=== PATIENT | male | born 1935 | race Caucasian/White ===

== ENCOUNTER 2018-06-02 18:22 | Emergency (ER) | payer MEDICARE, OTHER ==
[~2018-06-02] VITALS: Ht 180.3 cm; Wt 67.1 kg
[~2018-06-02 18:22] MED LIST: ASPIR 8181 MG PO; COMBIVENT14.7 GM INH; Z.0.AMBIEN5 MG PO; Z.0.COLACE100 MG PO; Z.0.GABAPENTIN300 MG PO; Z.0.LEVOTHYROXINE75 PO; Z.0.LISINOPRIL5 MG PO; Z.0.ZITHROMAX250 MG PO; Z.1.FERROUS SULFAT32 PO
[2018-06-02 20:13] LABS: BASOPHILS % 0.4 % (0.0-1.0); EOSINOPHILS # (AUTO) 0.4 (0.0-0.4); EOSINOPHILS % 5.9 % (0.0-6.0); HEMATOCRIT 50.5 % (38.2-49.6); HEMOGLOBIN 16.4 g/dL (14.0-18.0); LYMPHOCYTES # (AUTO) 2.8 (1.0-3.2); LYMPHOCYTES % 39.1 % (18.0-39.1); MEAN CORPUSCULAR HEMOGLOBIN 33.6 pg (28-32); MEAN CORPUSCULAR HGB CONC 32.5 g/dL (31-35); MEAN CORPUSCULAR VOLUME 103.5 fL (81-99); MONOCYTES # (AUTO) 0.5 (0.2-0.8); MONOCYTES % 7.4 % (4.4-11.3); NEUTROPHILS # (AUTO) 3.4 (2.1-6.9); NEUTROPHILS % 47.1 % (38.7-80.0); PLATELET COUNT 146 x10e3/uL (140-360); RED BLOOD COUNT 4.88 x10e6/uL (4.3-5.7); RED CELL DISTRIBUTION WIDTH 12.1 % (11.7-14.4)
[2018-06-02 20:17] LABS: PARTIAL THROMBOPLASTIN TIME 29.9 seconds (23.8-35.5); PROTHROMBIN TIME 13.7 seconds (11.9-14.5)
[2018-06-02 20:27] LABS: ALBUMIN 4.1 g/dL (3.5-5.0); ALBUMIN/GLOBULIN RATIO 1.3 (0.8-2.0); ANION GAP 11.5 mmol/L (8-16); CALCIUM 9.7 mg/dL (8.4-10.2); CREATININE, SERUM 1.27 mg/dL (0.72-1.25); POTASSIUM 4.5 mmol/L (3.5-5.1)
[2018-06-02 20:34] LABS: CREATINE KINASE MB 3.1 ng/mL (0-5.0)
[2018-06-02] MEDS ORDERED: SODIUM CHLORIDE 0.9% 250ML 500 ML ONE (22:01)
[2018-06-02 22:25] LABS: BACTERIA,URINE FEW /HPF; BILIRUBIN,URINE NEGATIVE (NEGATIVE); CLARITY,URINE CLEAR (CLEAR); COLOR,URINE YELLOW (YELLOW); EPITHELIAL CELLS,URINE FEW /LPF; KETONES,URINE NEGATIVE (NEGATIVE); LEUKOCYTE ESTERASE ,URINE NEGATIVE (NEGATIVE); NITRITE,URINE NEGATIVE (NEGATIVE); PROTEIN,URINE DIPSTICK NEGATIVE (NEGATIVE); URINE UROBILINOGEN 0.2 mg/dL (0.2 - 1)
[2018-06-02] MEDS ORDERED: SODIUM CHLORIDE 0.9% 500ML 500 ML IV ONE (22:30)
[2018-06-02] MEDS ORDERED: SODIUM CHLORIDE 0.9% 100 ML 100 ML ONE (22:49)
[2018-06-02] MEDS ORDERED: IOPAMIDOL 370 MG/ML 200 ML INFUS..BTL INJ ONE (22:50)
--- NOTE | 2018-06-02 23:27 | NUR ---
250CC NS BOLUS STARTED AFTER CT. AWAKE ALERT SKIN W/D RESP NONLAB. NAD NOTED.
--- NOTE | 2018-06-02 23:47 | NUR ---
BOLUS INFUSED, SALINE LOCKED IV
--- NOTE | 2018-06-02 23:51 | Diagnostic Imaging Report ---
EXAMINATION: CT angio of the neck and head with contrast. HISTORY:Dizziness and weakness. COMPARISON:Report of MRA head and neck from 11/21/2012, prior images are not available for comparison at the time of interpretation. TECHNIQUE: Multidetector helical axial images were acquired through the neck and head during infusion of iodinated contrast material. Images were reviewed in multiplanar and 3-dimensional format. Dose modulation, iterative reconstruction, and/or weight based adjustment of the mA/kV was utilized to reduce the radiation dose to as low as reasonably achievable. Contrast: 100 mL of Isovue-370. . FINDINGS: Suboptimal evaluation due to dental amalgam artifacts and extensive perivertebral prominent venous plexus. AORTIC ARCH: Focal nonstenotic hard atherosclerotic plaque at the origin of left subclavian artery. Otherwise, no abnormality. NECK: If carotid bulb stenosis is present, stenosis is measured with respect to the distal extracranial internal carotid artery. Common carotid arteries: Patent Cervical carotid bifurcations: Right: Patent. Left :Patent. Internal carotid arteries: Right: Patent. Left: Patent. Vertebral arteries: Patent. Incidental finding: Nonspecific significant and extensive prominence of perivertebral venous plexus. HEAD: Internal carotid arteries: Right: Patent. Left: Patent. Vertebral arteries: Patent. Basilar artery: Patent. Posterior cerebral arteries: Patent. Anatomical variants: Anterior communicating artery :Present Posterior communicating arteries: Not visualized. Vertebral arteries: Dominant right. Incidental finding: Mild mucosal thickening in bilateral ethmoid sinuses. 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 C4-C5: Severe left foraminal stenosis due to advanced left facet arthrosis. C5-C6: Mild left foraminal stenosis due to facet and uncovertebral arthrosis. C6-C7: Moderate bilateral foraminal stenosis due to facet and uncovertebral arthrosis. IMPRESSION: CTA head and neck: No significant cervical or intracranial arterial vascular abnormality. Nonspecific significant and extensive prominence of perivertebral venous plexus Signed by: Dr. Pushpa Sinclair M.D. on 06/02/2018 11:48 PM
== END 2018-06-03 01:05 | disposition home or self-care (01) ==
LOC: ER 18:22
DX: R53.1 Weakness (principal); R26.2 Difficulty in walking, not elsewhere classified
CPT/HCPCS: 36415; 70496; 70498; 80053; 81001; 82550; 82553; 84484; 85025; 85610; 85730; 93005; 99284; J7050; Q9967

== ENCOUNTER → 2019-11-06 | Day surgery (SDC) | payer MEDICARE, OTHER ==
[2019-11-01 13:57] LABS: BASOPHILS % 0.4 % (0.0-1.0); EOSINOPHILS # (AUTO) 0.3 (0.0-0.4); HEMATOCRIT 45.9 % (38.2-49.6); HEMOGLOBIN 14.6 g/dL (14.0-18.0); LYMPHOCYTES # (AUTO) 2.4 (1.0-3.2); LYMPHOCYTES % 35.3 % (18.0-39.1); MEAN CORPUSCULAR HEMOGLOBIN 32.4 pg (28-32); MEAN CORPUSCULAR HGB CONC 31.8 g/dL (31-35); MONOCYTES # (AUTO) 0.7 (0.2-0.8); MONOCYTES % 9.8 % (4.4-11.3); NEUTROPHILS # (AUTO) 3.3 (2.1-6.9); NEUTROPHILS % 49.4 % (38.7-80.0); PLATELET COUNT 141 x10e3/uL (140-360); RED CELL DISTRIBUTION WIDTH 12.8 % (11.7-14.4)
[2019-11-01 14:22] LABS: ALBUMIN 3.7 g/dL (3.5-5.0); ALBUMIN/GLOBULIN RATIO 1.3 (0.8-2.0); ANION GAP 12.6 mmol/L (8-16); CALCIUM 9.1 mg/dL (8.4-10.2); CREATININE, SERUM 1.41 mg/dL (0.72-1.25); POTASSIUM 4.6 mmol/L (3.5-5.1)
--- NOTE | 2019-11-02 13:30 | NUR ---
4530p Pre-admit interview completed with Mei () she is aware of importance to f/o Dr Park office regarding Eliquis or med to beheld. Aware of importance to self quarantine and report and any s/s Covid related issues. rajni/rn
[~2019-11-06] VITALS: Ht 180.3 cm; Wt 67.1 kg
[~2019-11-06] MED LIST changes: +BENZOCAINE 20% SPR 60 ML CAN ONE; +DONEPEZIL; +ELIQUIS2.5 MG PO; +MEMANTINE 10 MG PO; +METOPROLOL SUCCINATE PO; +PROPOFOL IV EMULSION 10 MG/ML 20 ML VIAL ONE; +SODIUM CHLORIDE 0.9% 1000ML 1,000 ML ONE
[2019-11-06 13:25] VITALS: BP 132/85
[2019-11-06 13:30] VITALS: BP 141/92
--- NOTE | 2019-11-06 13:30 | NUR ---
1252 - pt received for AUDRA, placed on bedside monitoring. pt positioned for procedure. IV site patent to left mid forearm , VS WNL for pt trend , Paced rhythm 1303 - hurricaine spray (spray 1) to oral cavity 1310 - all responsible staff present, Timeout performed, hurricaine spray (spray 2) to oral cavity 1315 - bite block positioned and AUDRA probe passed 1318 - AUDRA probe removed , no gross trauma or distress observed 1322 - pt taken to preop 7 for further recovery
[2019-11-06 13:45] VITALS: BP 142/86
[2019-11-06 14:00] VITALS: BP 136/88
[2019-11-06 14:15] VITALS: BP 136/92
[2019-11-06 14:30] VITALS: BP 134/88
--- NOTE | 2019-11-06 14:30 | NUR ---
Pt meets DC criteria. oral cavity assessed for s/s of complication and presence of trauma. overall skin warm, dry, no discolor, and pulses present. IV removed from left forearm. Distal tip appears intact. VS WNL. Pt denies pain, sob, or need at this time. Family at bedside. Review of discharge paperwork and follow up instructions. verbalized understanding. Pt to wheelchair and transported to front of hospital. Transferred to private vehicle under own strength w/o incident with DC paperwork in hand. - cgf
== END | disposition home or self-care (01) ==
LOC: CATH LAB 10:58
PROVIDERS: ATTEND Internal Medicine Interventional Cardiology
DX: I48.0 Paroxysmal atrial fibrillation (principal); Z95.818 Presence of other cardiac implants and grafts; I34.0 Nonrheumatic mitral (valve) insufficiency; Z01.812 Encounter for preprocedural laboratory examination; Z11.59 Encounter for screening for other viral diseases; Z79.02 Long term (current) use of antithrombotics/antiplatelets; Z95.0 Presence of cardiac pacemaker
CPT/HCPCS: 36415; 80053; 85025; 93307; 93312; 93320; 93325; J2704; J7030; U0002